=== PATIENT | female | born 1960 | race African-American/Black ===

== ENCOUNTER 2016-06-10 08:43 | Emergency (ER) | payer OTHER, MEDICAID ==
[~2016-06-10] VITALS: Ht 170.2 cm; Wt 100.0 kg
[~2016-06-10 08:43] MED LIST: DULO20 PO; MOBI15TA PO
[2016-06-10 08:45] VITALS: BP 137/77; PULSE 94; RESP 20; TEMP 97.9; O2SAT 98
[2016-06-10] MEDS ORDERED: HYDR-3533 PO (09:02)
[2016-06-10] MEDS ORDERED: SIMV40TA PO (09:02)
--- NOTE | 2016-06-10 09:27 | PD ---
HPI Chief Complaint: Injury Time Seen by Provider: 09:23 Travel History International Travel<30 days: No Contact w/Intl Traveler<30days: No Traveled to known affect area: No History of Present Illness HPI 55-year-old female presents to the emergency Department with complaint of right wrist and forearm pain since yesterday after injuring it while playing with her grandson. Denies paresthesias, loss of sensation. Reports decreased range of motion and decreased strength secondary to pain. Denies fever, chills, nausea, vomiting. Took half a Lortab last night with some relief of pain. Has not had any other treatments or medications to relieve her symptoms. Pain is aggravated with movement and palpation. No known relieving factors. Denies allergies. History of hyper cholesterolemia. No other modifying factors or associated signs and symptoms. PFSH Past Medical History Anemia: Yes Heart Rhythm Problems: No Cardiac Catheterization: No Cardiovascular Problems: Yes High Cholesterol: Yes Congestive Heart Failure: No Diabetes: No Immune Disorder: No Immunizations Current: Yes Migraines: Yes Menopausal: Yes : 3 Para: 3 Past Surgical History Abdominal Surgery: Yes () Section: Yes (X3) Coronary Artery Bypass Graft: No Social History Alcohol Use: No Tobacco Use: No Substance Use: No Allergies-Medications (Allergen,Severity, Reaction): Coded Allergies: No Known Allergies (Unverified , 06/10/16) Reported Meds & Prescriptions Reported Meds & Active Scripts Active Reported Simvastatin 40 Mg Tab 40 Mg PO HS Lortab (Hydrocodone-Acetaminophen) 5-325 Mg Tab 1 Tab PO Q6H PRN Review of Systems Except as stated in HPI: all other systems reviewed are Neg Physical Exam Narrative GENERAL: Well-nourished, well-developed female patient, in no acute distress SKIN: Warm and dry. HEAD: Atraumatic. Normocephalic. EYES: Pupils equal and round. No scleral icterus. No injection or drainage. ENT: Mucosa pink and moist. Airway patent. NECK: Trachea midline. CARDIOVASCULAR: Regular rate. RESPIRATORY: No accessory muscle use. GASTROINTESTINAL: Rounded. MUSCULOSKELETAL: Right wrist with tenderness on palpation and with mild edema; without erythema; with decreased range of motion secondary to pain; no obvious deformities. Right forearm is without erythema, edema and is with tenderness on palpation. Right hand without tenderness on palpation and all fingers with full range of motion and sensory intact. Right upper extremity supple and non- tense with 2+ radial pulses and sensory intact. No obvious deformities. No clubbing. No cyanosis. NEUROLOGICAL: Awake and alert. Oriented 3. No obvious cranial nerve deficits. Motor grossly within normal limits. Normal speech. PSYCHIATRIC: Appropriate mood and affect; insight and judgment normal. Data Data Last Documented VS Vital Signs Date Time Temp Pulse Resp B/P Pulse Ox O2 Delivery O2 Flow Rate FiO2 06/10/16 08:45 97.9 94 20 137/77 98 Room Air Orders Wrist, Complete (Rhf1dda) (06/10/16 09:22) Forearm (2vws) (06/10/16 09:22) Ibuprofen (Motrin) (06/10/16 09:30) [facility] Medical Decision Making Medical Screen Exam Complete: Yes Emergency Medical Condition: Yes Medical Record Reviewed: Yes Differential Diagnosis Fracture, dislocation, sprain Narrative Course 55-year-old female with right wrist/forearm injury. Right upper extremity supple and non-tense with 2+ radial pulses and sensory intact and without erythema or edema. Ibuprofen administered in ear. Right wrist and forearm x- ray ordered. 1015: Right wrist and right forearm x-rays with no acute findings. Velcro wrist splint ordered for support. Arm sling ordered for support. Ibuprofen prescribed for home. Patient instructed to follow up outpatient if symptoms persist greater than 10 days. Patient verbalized understanding and agreement with treatment plan. Patient is medically cleared and stable for discharge. Discussed reasons to return to the emergency department. Instructed patient to follow up with primary care provider. Patient agrees with treatment plan. The patients vital signs are stable and the patient is stable for outpatient follow- up and treatment. Patient discharged home, stable and in no acute distress. Diagnosis Primary Impression: Right wrist sprain Qualified Code: S63.501A - Right wrist sprain, initial encounter Additional Impression: Right forearm injury Qualified Code: S59.911A - Right forearm injury, initial encounter Referrals: Primary Care Physician Patient Instructions: General Instructions, Wrist Sprain (ED) Departure Forms: Tests/Procedures, Work Release Enter return to work date: Jun 16, 2016 Additional Instructions: Tylenol or ibuprofen as directed and as needed to reduce pain Rest, ice, compress, and elevate extremity to decrease pain and inflammation Wrist splint for support Arm sling as needed for support Jaylon bandages as needed for compression Avoid aggravating activity; increase activity as tolerated Follow-up with primary care provider Return to the emergency department immediately with worsening symptoms Med/Other Pt SpecificInfo: Prescription(s) given Scripts Ibuprofen 800 Mg [id number] Mg PO Q6HR PRN (PAIN) #30 TAB Ref 0 Prov:Leigha Reeves 06/10/16 Disposition: 01 DISCHARGE HOME Condition: Stable Leigha Reeves Jun 10, 2016 09:27
[2016-06-10] MEDS ORDERED: IBUPROFEN 800 MG TAB PO ONE (09:30)
--- NOTE | 2016-06-10 10:02 | RADRPT ---
EXAM DATE/TIME: 06/10/2016 09:36 [facility] COMPARISON: No previous studies available for comparison. INDICATIONS : Patient states they "jammed" right arm by hitting it on another person. Right wrist pain and swelling . Pain on posterior aspect of right wrist. MEDICAL HISTORY : None. SURGICAL HISTORY : None. ENCOUNTER: Initial ACUITY: 1 day PAIN SCORE: 8/10 LOCATION: Right Wrist FINDINGS: Three view examination of the right wrist demonstrates no soft tissue swelling, dislocation, or fract ure. The carpal bones are in normal alignment. The joint spaces are maintained. Bony mineralizatio n is normal. CONCLUSION: Unremarkable study. Jeffry Maddox MD on June 10, 2016 at 10:00 Board Certified Radiologist. This report was verified electronically.
--- NOTE | 2016-06-10 10:02 | RADRPT ---
EXAM DATE/TIME: 06/10/2016 09:38 [facility] COMPARISON: No previous studies available for comparison. INDICATIONS : Patient states they "jammed" right arm by hitting it on another person. Pain radiates from right wris t to elbow. MEDICAL HISTORY : None. SURGICAL HISTORY : None. ENCOUNTER: Initial ACUITY: 1 day PAIN SCORE: 8/10 LOCATION: Right Forearm FINDINGS: Two view examination of the right forearm demonstrates no evidence of fracture or dislocation. Bony mineralization is normal. The soft tissue structures are intact. CONCLUSION: Unremarkable study. Jeffry Maddox MD on June 10, 2016 at 10:01 Board Certified Radiologist. This report was verified electronically.
[2016-06-10] MEDS ORDERED: IBUP800T23 PO (10:18)
[2016-06-10 10:46] VITALS: RESP 18
== END 2016-06-10 10:47 | disposition home or self-care (01) ==
LOC: NEPB 08:43
DX: S63.501A Unspecified sprain of right wrist, initial encounter (principal); S59.911A Unspecified injury of right forearm, initial encounter; X58.XXXA Exposure to other specified factors, initial encounter
CPT/HCPCS: 73090; 73110; 99283; L3908